=== PATIENT | male | born 1965 | race Caucasian/White ===

== ENCOUNTER → 2018-06-15 | Outpatient (CLI) | payer BC ==
--- NOTE | 2018-06-15 16:18 | Diagnostic Imaging Report ---
INDICATION: Kidney stone. FINDINGS: The bowel gas pattern is nonspecific. There is questionable punctate calcification projected over the left kidney. No other abnormal calcifications are appreciated. IMPRESSION: Questionable punctate calcification projected over the left kidney. Dictated by: Dictated on workstation # [id number]
== END ==
LOC: RAD 13:51
PROVIDERS: ATTEND Urology
DX: N20.0 Calculus of kidney (principal)
CPT/HCPCS: 74018